=== PATIENT | female | born 1955 | race Caucasian/White ===

== ENCOUNTER 2024-12-15 11:03 | Emergency (ER) | payer MEDICARE, BC, SELFPAY ==
[2024-12-15 11:04] VITALS: BP 105/67
[2024-12-15 11:33] VITALS: BP 139/59
[2024-12-15 12:00] VITALS: BP 126/61
[2024-12-15 12:23] LABS: % Basophils 0.5 % (0-2); % Eosinophils 0.2 % (0-6); % Immature Granulocytes 0.5 % (0-0.5); % Lymphocytes 18.3 % (20.5-51.1); % Neutrophils 67.5 % (42.2-75.2); Absolute Lymphocytes 0.8 10^3/uL (1.2-3.4); Absolute Monocytes 0.5 10^3/uL (0.1-0.6); Absolute Neutrophils 2.8 10^3/uL (1.4-6.5); Hematocrit 35.4 % (37.0-47.0); Hemoglobin 11.6 g/dL (12.0-16.0); Mean Corp Hgb Conc. 32.8 g/dL (33.0-37.0); Mean Corpuscular Hgb 27.1 pg (27.0-31.0); Mean Corpuscular Volume 82.7 fL (81.0-99.0); Mean Platelet Volume 10.6 fL (7.4-10.4); Nucleated Red Blood Cells % 0 %; Platelet Count 188 10^3/uL (130-400); Red Blood Cell Count 4.28 10^6/uL (4.20-5.40); Red Cell Dist. Width 13.8 % (11.5-14.5); White Blood Cell Count 4.2 10^3/uL (4.8-10.8)
[2024-12-15] MEDS: NSS 1000 IV (12:33)
[2024-12-15 12:43] LABS: ALT (SGPT) 19 U/L (0-35); AST (SGOT) 29 U/L (14-36); Alkaline Phosphatase 62 U/L (38-126); Blood Urea Nitrogen 28 mg/dl (7-17); Calcium 10.1 mg/dl (8.4-10.2); Carbon Dioxide 24 mmol/L (22-30); Chloride 102 mmol/L (98-107); Glucose 114 mg/dl (70-99); Potassium 4.8 mmol/L (3.5-5.1); Sodium 135 mmol/L (135-145); Total Bilirubin 0.5 mg/dl (0.2-1.3); Total Protein 7.1 g/dl (6.3-8.2); eGFR > 60.00
[2024-12-15 12:44] LABS: Urine Albumin 2+ (Neg - Trace); Urine Bilirubin Negative (Negative); Urine Character Clear (Clear); Urine Color Yellow; Urine Glucose Negative (Negative); Urine Ketone Negative (Negative); Urine Leukocyte 3+ (Negative); Urine Nitrite Negative (Negative); Urine Occult Blood 2+ (Negative); Urine Urobilinogen Negative (Neg - 1+)
[2024-12-15 12:51] LABS: Urine Hyaline Cast 0-2 /LPF (0-2); Urine Red Blood Cell 0-2 /HPF (0-2); Urine Squamous Cell 0-2 /LPF (Few)
[2024-12-15 12:52] LABS: Urine Bacteria Moderate (Negative); Urine White Cell 26-30 /HPF (0-5)
--- NOTE | 2024-12-15 12:58 | ED.GENMED ---
History of Present Illness
General
Chief Complaint: Dizziness
Time Seen by Provider: 12/15/24 11:16
History of Present Illness
History of Present Illness:
69-year-old female with history of hypertension, hyperlipidemia, and xnd-jqoedms-wdydwkriz diabetes presents to the emergency department for evaluation of a near syncopal event that occurred this morning. She notes for the past several days she has
had viral URI symptoms with sore throat and coughing. Admits to poor p.o. intake over the past 2 to 3 days. Denies chest pain or shortness of breath. This is a near syncopal event and there was no full loss of consciousness. Denies any lower
urinary tract voiding symptoms
Review of Systems
Review of Systems
Allergies reviewed?: Yes
All Other Systems: ROS reviewed and negative except as documented in HPI and ROS
Phy Exam
Physical Exam
Physical Exam:
GEN: Well appearing, NAD, WDWN
HEENT: Oral mucosa moist, no scleral icterus
Cardiac: Regular rate and rhythm, no murmur
Lung: No respiratory distress, no tachypnea, lungs clear to auscultation bilaterally
MSK: No gross deformity or injuries
Skin: Good color, no pallor or jaundice, no rashes
Neuro: AO x3, moves all extremities freely
Psych: Calm, cooperative
Course
Orders/Labs/Results
Orders:
Orders
12/15/24 11:09
Electrocardiogram (*1) Urgent
Reason for Study: Vertigo / Dizzy
EKG- Treatment ONCE
12/15/24 12:10
Complete Blood Count/With Diff Urgent
Comprehensive Metabolic Panel Urgent
12/15/24 12:24
0.9% Sodium Chloride 1000 ml [Nss] 1,000 ml IV BOLUS
12/15/24 12:31
Urinalysis Reflex To Culture Urgent
Date Specimen was Collected: 12/15/24
Time Specimen was Collected: 12:25
Urine Microscopic Reflex Cult Urgent
Urine Culture Urgent
GINNY Source: U
Specimen Description:
Date Specimen was Collected: 12/15/24
Time Specimen was Collected: :
Abnormal Lab Results
12/15/24 12/15/24
12:10 12:31
WBC 4.2 L 10^3/uL
(4.8-10.8)
Hgb 11.6 L g/dL
(12.0-16.0)
Hct 35.4 L %
(37.0-47.0)
MCHC 32.8 L g/dL
(33.0-37.0)
MPV 10.6 H fL
(7.4-10.4)
Absolute Lymphs (auto) 0.8 L 10^3/uL
(1.2-3.4)
Lymphocytes % 18.3 L %
(20.5-51.1)
Monocytes % 13.0 H %
(1.7-9.3)
BUN 28 H mg/dl
(7-17)
Glucose 114 H mg/dl
(70-99)
Ur Occult Blood Reflex 2+ A
(Negative)
Leukocyte Esterase Rfl 3+ A
(Negative)
Urine WBC (Reflex) 26-30 A /HPF
(0-5)
Urine Bacteria (Reflex) Moderate A
(Negative)
Urine Albumin (Reflex) 2+ A
(Neg - Trace)
12/15/24 12:10
12/15/24 12:10
Vital Signs
Initial and Last Documented VS:
Initial Vital Signs
Temp Pulse Resp BP Pulse Ox
98.0 F 80 18 105/67 98
12/15/24 11:04 12/15/24 11:04 12/15/24 11:04 12/15/24 11:04 12/15/24 11:04
Last Documented Vital Signs
Temp Pulse Resp BP Pulse Ox
98.0 F 76 15 126/61 98
12/15/24 11:04 12/15/24 12:15 12/15/24 12:15 12/15/24 12:00 12/15/24 12:15
MDM/Problems Addressed
MDM/Problems Addressed:
Labs reassuring, likely some degree of dehydration. Interestingly she has noted to have signs of UTI thus will treat empirically with antibiotics pending cultures. Given IV fluids for likely dehydration mediated vasovagal syndrome today.
*Critical Care Note
Total Time (30-74mins, 75-104mins- exclusive of procedures): Not Applicable
ED Attending Note
-
Portions of this chart may have been created with voice recognition software.� Occasional wrong word or��sound alike� substitutions may have occurred due to the inherent limitations of voice recognition software.
Discharge Plan
Departure
Patient Disposition: Home (Routine Discharge)
Date of Disposition: 12/15/24
Time of Disposition: 12:59
Patient with high blood pressure during this ER visit?: No
Discharge Problem:
Near syncope, Urinary tract infection
Instructions: Urinary tract infections in adults
Prescriptions:
New
nitrofurantoin macrocrystal 100 mg capsule
100 mg PO BID 5 Days Qty: 10 0RF
Referrals:
UNKNOWN - PT DOES,NOT KNOW [Family Provider] -
Interventions
Interventions:
*Risk Screen - Suicide Last Done: 12/15/24 11:04
*General Assessment Last Done: 12/15/24 11:04
*Neglect/Abuse Screening Last Done: 12/15/24 11:41
*ED- Fall Risk Assessment Last Done: 12/15/24 11:41
*ED COVID-19 Vaccine History Last Done: 12/15/24 11:04
*Nursing Disposition Last Done: 12/15/24 13:11
ED- Neurological Assessment Last Done: 12/15/24 12:17
ED- Cardiac Assessment Last Done: 12/15/24 13:11
ED Swallowing Screen Last Done: 12/15/24 11:41
Discharge Date and Time
Discharge Date/Time: 12/15/24 13:43
Print Language: CHINESE
== END 2024-12-15 13:43 | disposition home or self-care (01) ==
LOC: EMR 11:03
PROVIDERS: Physician Assistant; EMERGENCY PHYSICIAN Emergency Medicine
DX: R55 Syncope and collapse (principal); N39.0 Urinary tract infection, site not specified; I10 Essential (primary) hypertension; E78.5 Hyperlipidemia, unspecified; E11.9 Type 2 diabetes mellitus without complications
CPT/HCPCS: 96360; 99284; 80053; 81003; 81015; 85025; 87086; 93005

== ENCOUNTER → 2025-02-03 14:50 | Outpatient (REF) | payer MEDICARE, BC, SELFPAY | LOC: HWWDC 14:50 | PROVIDERS: ATTENDING PHYSICIAN Family Medicine | DX: Z12.31 Encounter for screening mammogram for malignant neoplasm of breast (principal) | CPT/HCPCS: 77063; 77067 ==